=== PATIENT | male | born 1975 ===

== ENCOUNTER → 2016-07-12 | Outpatient (REF) | LOC: ZLAB.WCH 11:37 | DX: Z01.89 Encounter for other specified special examinations (principal) ==

== ENCOUNTER → 2018-08-05 | Outpatient (REF) ==
[2018-08-05 18:13] LABS: THYROID STIMULATING HORMONE 2.37 uIU/mL (0.465-4.680)
== END ==
LOC: ZLAB.WCH 16:28
PROVIDERS: Family Medicine
DX: Z01.89 Encounter for other specified special examinations (principal)

== ENCOUNTER 2021-06-18 11:33 | Emergency (ER) | payer SELFPAY ==
[~2021-06-18] VITALS: Ht 177.8 cm; Wt 102.3 kg
[2021-06-18 12:39] LABS: BASO % 0.4 % (0.0-2.0); EOS # 0.1 K/mm3 (0.0-0.7); EOS % 2.2 % (0.0-4.0); GRAN # 2.6 K/mm3 (1.4-6.5); GRAN % 52.7 % (42.2-75.2); HEMATOCRIT 47.9 % (42.0-52.0); HEMOGLOBIN 16.6 g/dl (13.5-18.0); LYMPH # 1.4 K/mm3 (1.2-3.4); LYMPH % 27.7 % (20.0-51.0); MEAN CELL VOLUME 89 fl (80.0-100.0); MEAN CORPUSCULAR HEMOGLOBIN 31 pg (27-31); MEAN CORPUSCULAR HGB CONC 35 g/dl (33.0-37.0); MEAN PLATELET VOLUME 10.2 fl (7.4-10.4); MONO # 0.8 K/mm3 (0.1-0.6); PLATELET COUNT 214 K/mm3 (130-400); RED BLOOD COUNT 5.39 M/mm3 (4.20-5.60); REDCELL DISTRIBUTION WIDTH-CV 12.2 % (11.5-14.5)
[2021-06-18 13:09] LABS: ALBUMIN 4.7 gm/dL (3.5-5.0); BILIRUBIN,TOTAL 0.5 mg/dL (0.2-1.2); CALCIUM 9.5 mg/dL (8.4-10.2); CREATININE, serum 1.03 mg/dL (0.72-1.25); POTASSIUM 3.9 mmol/L (3.5-4.5); TOTAL PROTEIN 8.6 gm/dL (6.2-8.1)
[2021-06-18 14:21] VITALS: TEMP 98
[2021-06-18 15:16] VITALS: BP 135/70; PULSE 79
== END 2021-06-18 15:24 | disposition home or self-care (01) ==
LOC: COL.ER 11:33
PROVIDERS: Nurse Practitioner Family
DX: R74.01 Elevation of levels of liver transaminase levels (principal); Z20.822 Contact with and (suspected) exposure to COVID-19
CPT/HCPCS: Q9967